=== PATIENT | male | born 1985 ===

== ENCOUNTER 2023-09-12 07:36 | Outpatient (AMB) | payer BC, MEDICAID, SELFPAY ==
--- NOTE | 2023-09-12 07:24 | A.OFFPC_ITS ---
Intake Visit Reasons: establish care/HTN Allergies No Known Allergies Allergy (Verified 01/25/23 08:48) HPI establish care/HTN HPI Details HTN: Blood pressure is managed with losartan 25mg. Pt does not check his blood pressure at home, will have him start doing this. Denies chest pain, shortness of breath, dizziness, and blurred vision. Pt reports migraines in the back of his head and the side of his face x6 months. He states that he wakes up with migraines. Pt reports some sonophobia and photophobia. Denies any nausea/vomiting. He has never had imaging of his head. Will order CT. Will follow up with him in the office. [facility] Social History Patient Tobacco Use Status: Never used Tobacco Review of Systems Const Reports as per HPI Physical exam (Primary Care) Tobacco/Smoking Status: Tobacco use Status Patient Tobacco Use Status Never used Tobacco 01/25/23 08:52 Const General: cooperative Orientation/consciousness: patient oriented x3 Neuro General: patient oriented x3 Psych Appearance: grossly normal Mental Status: mental status grossly normal Speech and movement: Clear speech present Affect: normal affect Attitude: cooperative Thought process: Normal thought process present Thought content: Normal thought content present Insight: Good insight present (Psych) Judgement: Good judgement present (Psych) Telehealth Telehealth Location of provider rendering services: practice address Location of patient: address on file Patient Identification confirmed using: Name, : Yes Telehealth method: video Patient verbally consented to treatment: Yes Patient verbally consented to billing insurance company: Yes Patient informed of any privacy concerns related to visit: Yes Minutes spent on Phone/Video with Pt.: 10 Assessment and Plan Assessment & Plan (1) HTN (hypertension): Code(s): I10 - Essential (primary) hypertension Plan: Labs ordered, take BP at home (2) New onset headache: Code(s): R51.9 - Headache, unspecified Plan: CT ordered Plan The patient agreed to the use of a biomedical engineering technician for this encounter. Scribed for MALLORIE Dudley by Germaien Srinivasan biomedical engineering technician, on 09/12/2023 at 07:25 EST. Orders: Orders Complete Blood Count Auto Diff Today I10 - Essential (primary) hypertension Comprehensive [place]. Panel Fast Today I10 - Essential (primary) hypertension UA CC w/rflx Micro + Cult Today I10 - Essential (primary) hypertension TSH reflex Free T4 Today I10 - Essential (primary) hypertension Lipid Panel Today I10 - Essential (primary) hypertension CT head/brain wo IV con Today R51.9 - Headache, unspecified Coding Level of Care Code Tele New Pt Level 3 (63435) Diagnoses HTN (hypertension) I10 New onset headache R51.9
== END 2023-09-12 08:21 | disposition home or self-care (01) ==
LOC: HO.HMGC 07:36
PROVIDERS: Visit Provider Nurse Practitioner Family
DX: I10 Essential (primary) hypertension (principal); R51.9 Headache, unspecified
CPT/HCPCS: 99203

== ENCOUNTER 2023-10-10 07:49 | Outpatient (REF) | payer BC, SELFPAY ==
--- NOTE | ~2023-10-10 | CT_ITS ---
EXAMINATION: CT HEAD WITHOUT CONTRAST CLINICAL INFORMATION: Headache. COMPARISON: None. TECHNIQUE: Contiguous axial imaging was performed from the skullbase to vertex without intravenous administration of contrast. This CT examination was performed using dose optimization techniques as appropriate, variously including the following: *Automated exposure control *Adjustment of mA and/or kV according to patient size (this includes techniques or standardized protocols for targeted exams where dose is matched to indication/reason for exam; i.e. extremities or head) *Use of iterative reconstruction technique DLP: 802 mGy-cm. FINDINGS: There is no evidence of acute intracranial hemorrhage or territorial infarction. No abnormal mass effect or midline shift is seen. Yost to white matter differentiation is well preserved. A small 2.5 x 3.3 x 1.4 cm left middle cranial fossa arachnoid cyst is noted. The ventricles are normal in size. There is no abnormal attenuation within the brain parenchyma. The osseous structures and soft tissues are normal. The mastoid air cells are well aerated. Mild ethmoid sinus mucosal thickening visible. CT/CT head/brain wo IV con IMPRESSION: No acute intracranial pathology. Incidental small left middle cranial fossa arachnoid cyst.
== END 2023-10-10 07:50 | disposition home or self-care (01) ==
LOC: HO.CT 07:49
PROVIDERS: Visit Provider Nurse Practitioner Family
DX: R51.9 Headache, unspecified (principal)
CPT/HCPCS: 70450

== ENCOUNTER 2024-02-08 15:10 | Outpatient (AMB) | payer BC, SELFPAY ==
--- NOTE | 2024-02-08 15:31 | A.OFFVIS_ITS ---
Vital Signs 02/08/24 15:33 Height 5 ft 8 in Weight 193 lb BMI 29.3 BP 126/70 Blood Pressure Location Rt brachial Position Sitting Respiration 16 Pulse 92 Pulse Source Pulse Oximeter Pulse Oximetry (%) 98 Oxygen Delivery Method Room Air Intake Visit Reasons: INP-Cerbral Cysts-CONF Intake Note: Pt presents for new pt evaluation for cerebral cysts found on a ct scan Compliance Technician Required: No Allergies No Known Allergies Allergy (Verified 02/08/24 15:32) Medication List - Last Reconciled 02/08/24 by Fidelia Gong MD cetirizine 10 mg PO DAILY 30 days cyclobenzaprine 5 mg PO BID PRN 10 days escitalopram oxalate 10 mg PO DAILY losartan 25 mg PO DAILY 90 days omeprazole 40 mg PO DAILY PRN HPI Comments Details: 38y/o male comes for neurological evaluation . he had a CT brain done when he presented with ear pain and headaches. His ear infection was treated with antibiotics and resolved. His CT brain showed an incidental A small 2.5 x 3.3 x 1.4 cm left middle cranial fossa arachnoid cyst. He denies any headaches , focal neurological symptoms seizures etc. he reports excessive daytime fatigue and snoring.. [facility] Medical History (Updated 02/08/24 @ 15:54 by Fidelia Gong MD) Hypersomnia Snoring Bilat ing hernia Arachnoid cyst Social History Household Members: Spouse and Children Housing: House Alcohol intake: current Comment: socially- 6 pack weekly Patient Tobacco Use Status: Current everyday Tobacco user Years Smoked: 25 years - 4 cigarrettes daily Use of substances other than those prescribed or required for medical reasons: Yes Substance Use Type: Crack/Cocaine Substance Use Type Other:: cocaine Substance Use Frequency Other:: twice weekly Physical Exam Vital Signs: Last Vital Signs Pulse 92 02/08/24 15:33 Resp 16 02/08/24 15:33 BP 126/70 02/08/24 15:33 Pulse Ox 98 02/08/24 15:33 Oxygen Delivery Method Room Air 02/08/24 15:33 BMI result Body Mass Index 29.3 Const General: cooperative, healthy appearing, comfortable and no acute distress Nutritional Appearance: average body habitus Orientation/consciousness: patient oriented x3 Eyes Pupils: Equal, round and reactive pupils present Neuro Other: Mallampatti grade 4 General: patient oriented x3, gait normal, tone normal, moves all extremities and no focal motor deficits Cranial nerves: Yes CN's II-XII intact bilaterally, Yes Equal, round and reactive pupils present, Yes Bilaterally intact EOM present, Yes Normal facial strength present, Yes Midline tongue present and Yes Symmetric palate elevation present Cognition (Neuro): normal cognition Gait exam (Neuro): Normal gait present Motor exam (neuro): 5/5 motor strength present throughout and Normal motor muscle tone present throughout Deep tendon reflexes (DTR's): Right triceps reflex intensity grade: 1+, Left triceps reflex intensity grade: 1+, Rt Biceps (C5, C6): 1+, Left biceps reflex intensity grade: 1+, Right brachioradialis reflex intensity grade: 1+, Left brachioradialis reflex intensity grade: 1+, Right patellar reflex intensity grade: 1+ and Left patellar reflex intensity grade: 1+ Coordination: [id number] test normal Assessment & Plan Assessment & Plan (1) Arachnoid cyst: Comment: Incidental small left middle cranial fossa arachnoid cyst. Code(s): G93.0 - Cerebral cysts Category: Medical (2) Snoring: Code(s): R06.83 - Snoring Category: Medical (3) Hypersomnia: Code(s): G47.10 - Hypersomnia, unspecified Category: Medical Plan His incidental cyst in the left middle cranial fossa is asymptomatic. will monitor clinically and consider MRI if needed I will schedule him for a home sleep test to r/o sleep apnea. Orders: Orders RT home sleep study Today G47.10 - Hypersomnia, unspecified, R06.83 - Snoring Coding Level of Care Code New Pt Level 3 (30334) Diagnoses Arachnoid cyst G93.0 Snoring R06.83 Hypersomnia G47.10
[2024-02-08 15:33] VITALS: BP 126/70; PULSE 92; RESP 16; O2SAT 98; BMI 29.3
== END 2024-02-08 16:00 | disposition home or self-care (01) ==
PROVIDERS: Visit Provider Psychiatry & Neurology Neurology
DX: G93.0 Cerebral cysts (principal); R06.83 Snoring; G47.10 Hypersomnia, unspecified
CPT/HCPCS: 99203

== ENCOUNTER → 2024-02-08 15:10 | Outpatient (BNVA) | payer BC, SELFPAY | PROVIDERS: Visit Provider Psychiatry & Neurology Neurology ==

== ENCOUNTER 2024-02-10 11:26 | Outpatient (REF) | payer BC, SELFPAY ==
[2024-02-10 13:28] LABS: MANUAL DIFF FLAG NO
[2024-02-10 13:34] LABS: Basophils Absolute Auto 0.1 X10*3/uL (0.0-0.2); Eosinophils Absolute Auto 0.6 X10*3/uL (0.0-0.4); Eosinophils Percent Auto 10.5 % (0-4); Hematocrit 42.2 % (42.0-52.0); Imm Gran Abs Auto 0.02 X10*3/uL (0.00-0.03); Imm Gran Pct Auto 0.3 % (0.0-0.4); Lymphocytes Absolute Auto 2.1 X10*3/uL (1.2-4.9); Mean Corpuscular HGB Conc 33.2 g/dl (31.0-36.0); Mean Corpuscular Hemoglobin 29.3 pg (27.0-33.0); Mean Corpuscular Volume 88.3 fL (80.0-98.0); Mean Platelet Volume 10.8 fL (9.4-12.4); Monocytes Absolute Auto 0.5 X10*3/uL (0.1-1.2); Monocytes Percent Auto 7.9 % (2-11); Neutrophils Absolute Auto 2.6 x10*3/uL (2.0-8.3); Neutrophils Percent Auto 44.3 % (45-73); Platelet Count 310 X10*3/uL (160-400); Red Blood Count 4.78 X10*6/uL (4.60-5.80); White Blood Count 5.8 X10*3/uL (4.8-10.8)
[2024-02-10 13:39] LABS: Appearance Urine Turbid; Color Urine Yellow; Glucose Urine UA Negative (Negative); Leukocyte Esterase Urine Negative (Negative); Nitrite Urine Negative (Negative); PH 5.5 (5.0-9.0); Specific Gravity - Urine 1.025 (1.005-1.025); Urine Blood Negative (Negative); Urine Ketones Negative (Negative); Urine Protein Negative (Neg-Trace)
[2024-02-10 14:35] LABS: Alanine Aminotransferase 51 U/L (0-40); Albumin Level 4.2 g/dL (3.5-5.0); Alkaline Phosphatase 82 U/L (39-117); Anion Gap 15 (12-20); Aspartate Amino Transferase 37 U/L (5-37); Bilirubin Total 0.5 mg/dL (0.0-1.0); Blood Urea Nitrogen 12 mg/dL (9-16); Calcium 9.4 mg/dL (8.4-10.2); Carbon Dioxide 22 mmol/L (22-29); Chloride 108 mmol/L (96-108); Cholesterol 280 mg/dL (<200); Estimated Glomerular Filt Rate > 60; Glucose Fasting 103 mg/dL (60-99); HDL Cholesterol 49 mg/dL (>40); Sodium 141 mmol/L (135-145); Total Protein 7.2 g/dL (6.5-8.0); Triglycerides 591 mg/dL (<150)
[2024-02-10 14:50] LABS: TSH reflex Free T4 2.83 uIU/mL (0.32-4.0)
== END 2024-02-10 11:27 | disposition home or self-care (01) ==
LOC: HO.HMGCLDS 11:26
PROVIDERS: PCP Nurse Practitioner Family; Visit Provider Nurse Practitioner Family
DX: I10 Essential (primary) hypertension (principal)
CPT/HCPCS: 36415; 80053; 80061; 81003; 84443; 85025

== ENCOUNTER 2024-02-15 07:57 | Outpatient (AMB) | payer BC, SELFPAY ==
--- NOTE | 2024-02-15 07:59 | A.OFFPC_ITS ---
Vital Signs 02/15/24 08:01 02/15/24 08:38 Height 5 ft 8 in Weight 194 lb BMI 29.5 BP 120/90 H 118/80 Blood Pressure Location Rt brachial Rt brachial Position Sitting Sitting Pulse 91 Pulse Source Pulse Oximeter Pulse Oximetry (%) 95 Oxygen Delivery Method Room Air Intake Visit Reasons: PE Intake Note: Patient here for physical exam. Allergies No Known Allergies Allergy (Verified 02/15/24 08:01) Medication List - Last Reconciled 02/15/24 by MALLORIE Alberts atorvastatin 20 mg PO BEDTIME cetirizine 10 mg PO DAILY 90 days escitalopram oxalate 10 mg PO DAILY losartan 25 mg PO DAILY 90 days omeprazole 40 mg PO DAILY PRN Tobacco use date assessed: 02/15/24 Dental Screening Dental Screen Date: 02/15/24 Did you have a dental visit in the last 12 months?: Yes Did you have a dental problem in the last 6 months where you did not have access to dental care?: No Was dental information given to patient?: Patient has dentist HPI PE HPI Details Pt is here for a PE. Labs were already performed. Pt's cholesterol and trigs were elevated. Will start atorvastatin 20mg. Educated pt on the importance of proper diet and portion sizes, pt will research healthy foods. Will repeat labs. Pt's liver enzymes were also elevated. Will order US and hepatitis screen. Pt reports intermittent chest discomfort. He reports this does not radiate. He reports that this happens with stress. Will do an EKG today. HTN: Will have pt monitor his blood pressure at home. He will contact me if he sustains above 140/90 on a regular basis. [facility] Medical History (Updated 02/15/24 @ 08:44 by MALLORIE Alberts) Hypersomnia Snoring Bilat ing hernia Arachnoid cyst Social History Household Members: Spouse and Children Housing: House Alcohol intake: current Comment: socially- 6 pack weekly Patient Tobacco Use Status: Current someday Tobacco user Years Smoked: 25 years - 4 cigarrettes daily Substance Use Type: Crack/Cocaine Current occupational status: employed Cognitive needs: No Hearing needs: No Vision needs: No Questionnaire AUDIT C Alcohol Use Questionnaire (AUDIT-C) 1. How often do you have a drink containing alcohol?: 2-3 times a week 2. How many drinks containing alcohol do you have on a typical day when you are drinking?: 3 or 4 3. How often do you have six or more drinks on one occasion?: Monthly Total Score: 6 Score Reviewed/Action Taken: No Review of Systems Const Denies chills and Denies fever(s) Eyes Denies blurry vision ENT Denies vertigo, Denies dizziness and Denies sore throat Card Reports chest pain, Denies diaphoresis, Denies dyspnea and Denies dyspnea on exertion Resp Denies cough, Denies dyspnea, Denies dyspnea on exertion and Denies wheezing GI Denies abdominal pain, Denies melena, Denies hematochezia, Denies constipation, Denies diarrhea and Denies loose stools Denies hematuria Musc Denies numbness and Denies tingling Skin/Breast Denies lesions Neuro Denies vertigo, Denies dizziness, Denies numbness and Denies tingling Psych Denies anxiety, Denies depression, Denies homicidal ideation, Denies suicidal ideation and Denies other (substance abuse) Aller/Immun Denies wheezing Physical exam (Primary Care) Vital Signs: Last Vital Signs Pulse 91 02/15/24 08:01 BP 120/90 H 02/15/24 08:01 Pulse Ox 95 02/15/24 08:01 Oxygen Delivery Method Room Air 02/15/24 08:01 BMI result Body Mass Index 29.5 Tobacco/Smoking Status: Tobacco use Status Tobacco use date assessed 02/15/24 02/15/24 08:05 Patient Tobacco Use Status Current someday Tobacco 02/15/24 08:05 Const General: cooperative Nutritional Appearance: well nourished Orientation/consciousness: patient oriented x3 HENMT Head: Yes normal to inspection, Yes normocephalic and Yes atraumatic Ears: TM's normal bilaterally Eyes General: appearance normal, both eyes and all related structures Alignment and Position: alignment normal and position normal Neck Neck: Yes normal visual inspection and Yes no lymphadenopathy Thyroid: Thyroid normal Resp Effort & Inspection: normal respiratory effort Auscultation: clear to auscultation bilaterally Cardio Rate: regular rate Rhythm: regular rhythm Heart sounds: S1 normal heart sound present, S2 normal heart sound present and no murmurs GI Palpation (GI): Soft to palpation and nontender Auscultation: normal bowel sounds Male General Exam: Yes normal external exam Penis: normal penis Scrotum: scrotum normal, testes descended bilaterally and no inguinal hernias Testes: no testicular mass Skin Rashes: no rashes Neuro General: patient oriented x3, moves all extremities, no focal motor deficits and deep tendon reflexes 2+ bilaterally Romberg Test: Negative Psych Appearance: grossly normal Mental Status: mental status grossly normal Speech and movement: Normal speech and movement present Affect: normal affect Attitude: cooperative Thought process: Normal thought process present Thought content: Normal thought content present Insight: Good insight present (Psych) Judgement: Good judgement present (Psych) Assessment and Plan Assessment & Plan (1) Dyslipidemia: Code(s): E78.5 - Hyperlipidemia, unspecified Plan: Labs ordered, starting atorvastatin, will cont to monitor, educated on portion sizes and proper diet (2) Elevated liver enzymes: Code(s): R74.8 - Abnormal levels of other serum enzymes Plan: US and hepatitis screen ordered (3) Chest pain: Code(s): R07.9 - Chest pain, unspecified Plan: EKG done in office (4) HTN (hypertension): Code(s): I10 - Essential (primary) hypertension Plan: Monitor BP at home, contact me if it sustains above 140/90, will follow up with him in 3 months (5) Encounter for routine adult physical exam with abnormal findings: Code(s): Z00.01 - Encounter for general adult medical examination with abnormal findings Plan The patient agreed to the use of a medical device sales representative for this encounter. Scribed for MALLORIE Dudley by Germaine Srinivasan medical device sales representative, on 02/15/2024 at 08:10 EST. Orders: Orders LDL Cholesterol Direct Today E78.5 - Hyperlipidemia, unspecified Hepatitis A,B,C Profile Today R74.8 - Abnormal levels of other serum enzymes Comprehensive [place]. Panel Fast Today E78.5 - Hyperlipidemia, unspecified Lipid Panel Today E78.5 - Hyperlipidemia, unspecified US abdomen complete Today R74.8 - Abnormal levels of other serum enzymes AMB EKG-In Office Today R07.9 - Chest pain, unspecified Medications: New atorvastatin 20 mg PO BEDTIME 90 tabs 0RF Changed From cetirizine 10 mg PO DAILY 30 days 30 tabs 6RF allergy symptoms To cetirizine 10 mg PO DAILY 90 days 90 tabs 6RF allergy symptoms Coding Level of Care Code Est Pt Prev Care 40-64y(59254) Diagnoses Dyslipidemia E78.5 Elevated liver enzymes R74.8 Chest pain R07.9 HTN (hypertension) I10 Encounter for routine adult physical exam with abnormal findings Z00.01
[2024-02-15 08:01] VITALS: BP 120/90; PULSE 91; O2SAT 95; BMI 29.5
[2024-02-15 08:38] VITALS: BP 118/80
== END 2024-02-15 08:46 | disposition home or self-care (01) ==
PROVIDERS: Visit Provider Nurse Practitioner Family
DX: Z00.01 Encounter for general adult medical examination with abnormal findings (principal); E78.5 Hyperlipidemia, unspecified; R74.8 Abnormal levels of other serum enzymes; R07.9 Chest pain, unspecified; I10 Essential (primary) hypertension
CPT/HCPCS: 93000; 99214; 99396

== ENCOUNTER 2024-03-01 08:45 | Outpatient (REF) | payer BC, SELFPAY ==
--- NOTE | ~2024-03-01 | US_ITS ---
EXAMINATION: US ABDOMEN COMPLETE CLINICAL INFORMATION: Abnormal levels of other serum enzymes. Elevated liver enzymes. COMPARISON: None available. TECHNIQUE: Real-time imaging of the abdominal viscera. Limited visualization due to bowel gas. FINDINGS: PANCREAS: Limited visualization of pancreatic tail and head. Imaged portion of pancreatic body is unremarkable. ABDOMINAL AORTA: Limited visualization. INFERIOR VENA CAVA: Visualized portions are normal. LIVER: Hepatomegaly, right hepatic lobe measures 18.9 cm. The liver contour is normal. Increased hepatic parenchymal heterogeneity and echogenicity could be associated with hepatocellular disease/hepatic steatosis and substantially limits visualization. Correlation with liver function tests and clinical exam recommended to determine further management. GALLBLADDER: Gallbladder is distended measuring 10.7 x 3.5 x 3.7 cm. No gallstones. No gallbladder wall thickening. COMMON BILE DUCT: Normal in caliber measuring 0.3 cm in diameter. RIGHT KIDNEY: No hydronephrosis. No renal calculi. Limited visualization. The kidney measures 12.7 cm in maximum dimension. LEFT KIDNEY: No hydronephrosis. No renal calculi. Limited visualization. The kidney measures 11.1 cm in maximum dimension. SPLEEN: Normal. The spleen measures 10.1 cm in maximum dimension. FREE FLUID: None. US/US abdomen complete IMPRESSION: 1. Hepatomegaly, right hepatic lobe measures 18.9 cm. The liver contour is normal. Increased hepatic parenchymal heterogeneity and echogenicity could be associated with hepatocellular disease/hepatic steatosis and substantially limits visualization. Correlation with liver function tests and clinical exam recommended to determine further management. 2. Gallbladder is distended measuring 10.7 x 3.5 x 3.7 cm. No gallstones. No gallbladder wall thickening.
== END 2024-03-01 08:46 | disposition home or self-care (01) ==
LOC: HO.HMGCX 08:45
PROVIDERS: PCP Nurse Practitioner Family; Visit Provider Nurse Practitioner Family
DX: R74.8 Abnormal levels of other serum enzymes (principal)
CPT/HCPCS: 76700

== ENCOUNTER → 2024-03-27 13:38 | Outpatient (REF) | payer BC, SELFPAY | LOC: HO.SL 13:38 | PROVIDERS: PCP Nurse Practitioner Family; Visit Provider Psychiatry & Neurology Neurology | DX: G47.33 Obstructive sleep apnea (adult) (pediatric) (principal); R06.83 Snoring; G47.10 Hypersomnia, unspecified | CPT/HCPCS: 95806 ==

== ENCOUNTER → 2024-03-27 14:01 | Outpatient (BNV) | payer BC, SELFPAY | PROVIDERS: PCP Nurse Practitioner Family; Visit Provider Internal Medicine | DX: G47.33 Obstructive sleep apnea (adult) (pediatric) (principal) | CPT/HCPCS: 95806 ==

== ENCOUNTER 2024-04-23 15:36 | Outpatient (AMB) | payer BC, SELFPAY ==
--- NOTE | 2024-04-23 15:53 | MHC.PC.OV ---
Vital Signs 04/23/24 15:55 04/23/24 16:28 Height 5 ft 8 in Weight 192 lb BMI 29.2 BP 140/100 H 140/98 H Blood Pressure Location Rt brachial Rt brachial Position Sitting Sitting Pulse 71 Pulse Source Pulse Oximeter Pulse Oximetry (%) 98 Oxygen Delivery Method Room Air Intake Visit Reasons: Work clearance for BP Intake Note: Patient here to have paperwork filled out for BP's. Allergies No Known Allergies Allergy (Verified 04/23/24 15:55) Tobacco use date assessed: 02/15/24 Dental Screening Dental Screen Date: 02/15/24 HPI Work clearance for BP HPI Details HTN: pt reports his BP has been high. reports some anxiety associated with it, denies any CP, SOB, JEFFERSON, or blurred vision. Pt reports he has increased his alcohol intake lately. encouraged to reduce this. Pt does admit to cocaine use, intermittent. Went over the dangers of this, including cardiac arrest and . [facility] Medical History Hypersomnia Snoring Bilat ing hernia Arachnoid cyst Social History Household Members: Spouse and Children Housing: House Alcohol intake: current Comment: socially- 6 pack weekly Patient Tobacco Use Status: Current someday Tobacco user Years Smoked: 25 years - 4 cigarrettes daily Substance Use Type: Crack/Cocaine Current occupational status: employed Cognitive needs: No Hearing needs: No Vision needs: No Questionnaire Thrive Questionnaire I am a: Patient What is your living situation today?: I have a steady place to live Within the past 12 months, did the food you bought not last and you didn't have the money to get more?: I choose not to answer this question Within the past 12 months, did you worry whether your food would run out before you got money to buy more?: I choose not to answer this question Do you have trouble paying for medicines?: I choose not to answer this question Do you have trouble getting transportation to medical appointments?: I choose not to answer this question Do you have trouble paying your heating and electricity bill?: I choose not to answer this question Do you have trouble taking care of your child, family member or friend?: I choose not to answer this question Do you have trouble with day-to-day activities such as bathing, preparing meals, shopping, managing finances, etc.?: I choose not to answer this question Are you currently unemployed and looking for a job?: I choose not to answer this question Are you interested in more education?: I choose not to answer this question Please select the resources that you would like help with: Housing/Correction Currently or been in a relationship where the following occur: I choose not to answer THRIVE Score: 0 AUDIT C Alcohol Use Questionnaire (AUDIT-C) 1. How often do you have a drink containing alcohol?: 4 or more times a week 2. How many drinks containing alcohol do you have on a typical day when you are drinking?: 7 to 9 3. How often do you have six or more drinks on one occasion?: Daily or almost daily Total Score: 11 MARI-7 AMB Questionnaire MARI-7 Feeling nervous, anxious, or on edge: 3 = Nearly every day Not being able to stop or control worryin = Nearly every day Worrying too much about different things: 3 = Nearly every day Trouble relaxin = Nearly every day Being so restless that it is hard to sit still: 3 = Nearly every day Becoming easily annoyed or irritable: 3 = Nearly every day Feeling afraid as if something awful might happen: 0 = Not at all Total MARI-7 score (0-4 normal; 5-9 mild; 10-14 moderate; 15-21 severe): 18 Source: Developed by Drs. Al Pearce, Lady Ham, Joel Kraft and colleagues, with an educational anupama from [employer]. Physical exam (Primary Care) Vital Signs: Last Vital Signs Pulse 71 04/23/24 15:55 BP 140/100 H 04/23/24 15:55 Pulse Ox 98 04/23/24 15:55 Oxygen Delivery Method Room Air 04/23/24 15:55 BMI result Body Mass Index 29.2 Tobacco/Smoking Status: Tobacco use Status Tobacco use date assessed 02/15/24 04/23/24 16:01 Patient Tobacco Use Status Current someday Tobacco 04/23/24 16:01 Currently or been in a relationship where the following occur: I choose not to answer Const General: cooperative, healthy appearing and comfortable Nutritional Appearance: average body habitus Resp Effort & Inspection: normal respiratory effort Auscultation: clear to auscultation bilaterally Cardio Rate: regular rate Rhythm: regular rhythm Heart sounds: S1 normal heart sound present, S2 normal heart sound present and no murmurs Extrem Right lower extremity: no edema Left lower extremity: no edema Psych Appearance: grossly normal Mental Status: mental status grossly normal Speech and movement: Normal speech and movement present Affect: normal affect Attitude: cooperative Thought process: Normal thought process present Thought content: Normal thought content present Insight: Good insight present (Psych) Assessment and Plan Assessment & Plan (1) HTN (hypertension): Code(s): I10 - Essential (primary) hypertension Plan: Stop losartan 25, start losartan 50 HCTZ 12.5. We will follow up with him in about a month. Patient encouraged to get labs before his next follow-up Medications: New losartan-hydrochlorothiazide 50-12.5 mg 1 tab PO DAILY 30 days 30 tabs 3RF Discontinued losartan Discontinued Reason: Doctor's Order 25 mg PO DAILY 90 days 90 tabs 4RF Coding Level of Care Code Est Pt Level 3 (61082) Diagnoses HTN (hypertension) I10
[2024-04-23 15:55] VITALS: BP 140/100; PULSE 71; O2SAT 98; BMI 29.2
[2024-04-23 16:28] VITALS: BP 140/98
== END 2024-04-23 17:08 | disposition home or self-care (01) ==
PROVIDERS: PCP Nurse Practitioner Family; Visit Provider Nurse Practitioner Family
DX: I10 Essential (primary) hypertension (principal)
CPT/HCPCS: 99213